=== PATIENT | male | born 2000 | race African-American/Black ===

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

== ENCOUNTER 2020-10-20 20:46 | Emergency (ER) | payer MEDICAID, OTHER ==
[~2020-10-20] VITALS: Ht 182.9 cm; Wt 80.9 kg
[2020-10-20 20:58] VITALS: BP 123/69
[2020-10-20] MEDS ORDERED: KETOROLAC TROMETHAMINE 30 MG/ML VIAL IVP ONE (22:45)
[2020-10-20] MEDS ORDERED: DEXAMETHASONE SOD PHOS 4 MG/ML VIAL IVP ONE (22:45)
[2020-10-20] MEDS ORDERED: KETOROLAC TROMETHAMINE 30 MG/ML VIAL IM ONE (22:45)
[2020-10-20] MEDS ORDERED: IOHEXOL 350 MG/ML 100 ML VIAL ONE (23:16)
[2020-10-20] MEDS ORDERED: SODIUM CHLORIDE 0.9% 100 ML ONE (23:16)
== END 2020-10-21 01:32 | disposition home or self-care (01) ==
LOC: EMS 20:46
DX: S19.9XXA Unspecified injury of neck, initial encounter (principal); F41.9 Anxiety disorder, unspecified; J45.909 Unspecified asthma, uncomplicated; F32.9 Major depressive disorder, single episode, unspecified; F14.90 Cocaine use, unspecified, uncomplicated; F12.90 Cannabis use, unspecified, uncomplicated; X58.XXXA Exposure to other specified factors, initial encounter; Y93.89 Activity, other specified; Y92.89 Other specified places as the place of occurrence of the external cause; Y99.8 Other external cause status
CPT/HCPCS: 70498; 96374; 96375; 99285; A9575; J1100; J1885; J7050

== ENCOUNTER 2020-11-13 13:38 | Emergency (ER) | payer MEDICAID ==
[~2020-11-13] VITALS: Ht 175.3 cm; Wt 77.3 kg
[2020-11-13 14:35] VITALS: BP 122/87
== END 2020-11-13 15:42 | disposition home or self-care (01) ==
LOC: EMS 13:52
DX: R07.81 Pleurodynia (principal); J45.909 Unspecified asthma, uncomplicated; F41.9 Anxiety disorder, unspecified; F32.9 Major depressive disorder, single episode, unspecified
CPT/HCPCS: 71046; 99283

== ENCOUNTER 2021-08-01 10:34 | Emergency (ER) | payer MEDICAID ==
[~2021-08-01] VITALS: Ht 182.9 cm; Wt 72.7 kg
[2021-08-01 10:57] VITALS: BP 119/60
[2021-08-01] MEDS ORDERED: SODIUM CHLORIDE 0.9% 1,000 ML IV ONE (12:00)
[2021-08-01] MEDS ORDERED: KETOROLAC TROMETHAMINE 30 MG/ML VIAL IVP ONE (12:00)
== END 2021-08-01 13:03 | disposition home or self-care (01) ==
LOC: EMS 10:34
DX: M79.10 Myalgia, unspecified site (principal); M79.642 Pain in left hand; M79.641 Pain in right hand; F41.9 Anxiety disorder, unspecified; J45.909 Unspecified asthma, uncomplicated; F32.A Depression, unspecified; F14.90 Cocaine use, unspecified, uncomplicated; F12.90 Cannabis use, unspecified, uncomplicated; Z87.898 Personal history of other specified conditions
CPT/HCPCS: 96361; 96374; 99283; J1885; J7030